=== PATIENT | male | born 1970 | race African-American/Black ===

== ENCOUNTER 2019-12-01 22:35 | Emergency (ER) | payer SELFPAY ==
--- NOTE | 2019-12-01 22:40 | NUR ---
PT DECIDED NOT TO BE SEEN AND LEFT , AMBULATED W/O DIFF.
== END 2019-12-01 22:41 | disposition left against medical advice (07) ==
LOC: ER 22:38
DX: Z75.3 Unavailability and inaccessibility of health-care facilities (principal)